=== PATIENT | male | born 2000 | race African-American/Black ===

== ENCOUNTER 2019-01-03 14:56 | Emergency (ER) | payer OTHER ==
[~2019-01-03] VITALS: Ht 182.9 cm; Wt 59.0 kg
[2019-01-03] MEDS ORDERED: VENTOLIN HFA 1818 GM INH ×2 (16:27→17:46)
[2019-01-03] MEDS ORDERED: PREDNISONE50 MG PO (17:46)
[2019-01-03] MEDS ORDERED: ALBUTEROL2.5 MG/31 INH (17:46)
[2019-01-03] MEDS ORDERED: GUAIFEN-CODEINE10 ML PO (17:46)
[2019-01-03 17:53] VITALS: BP 120/64
--- NOTE | 2019-01-04 07:40 | EKG ---
[facility] [address] [place] [address] ELECTROCARDIOGRAM REPORT Name: EVELIA WOLFE [id number] Admission: 01/03/19 Attend Phys: Discharge: 01/03/19 Date of : 89 Report #: [id number] THIS REPORT FOR: //name// [facility] ED Test Date: 2019-01-03 Test Time: 15:18:58 Pat Name: EVELIA WOLFE Department: Room: Gender: M Product Evangelist: CARLOS : 2000 Requested By: Perla Cornell Order Number: [id number] MD: Delvin Conte Measurements Intervals [place] Rate: 94 P: 36 [place]: 145 QRS: 35 QRSD: 95 T: 15 QT: 343 QTc: 429 Interpretive Statements Sinus rhythm RSR' in V1 or V2, right VCD Left ventricular hypertrophy Borderline T abnormalities, lateral leads No previous ECG available for comparison Electronically Signed On 01-04-2019 7:40:04 CDT by Delvin Conte [email or web address] <ELECTRONICALLY SIGNED> By: Delvin Conte MD, [facility] 01/04/19 0740 [id number] Delvin Conte MD, FACC /EPI
== END 2019-01-03 17:54 | disposition home or self-care (01) ==
LOC: ER 14:56 → EDBD 14:56 → ER 17:54
DX: J45.901 Unspecified asthma with (acute) exacerbation (principal); J06.9 Acute upper respiratory infection, unspecified; F17.210 Nicotine dependence, cigarettes, uncomplicated